=== PATIENT | male | born 1950 | race Caucasian/White ===

== ENCOUNTER 2017-12-31 11:48 | Emergency (ER) | payer MEDICARE ==
[~2017-12-31] VITALS: Ht 167.6 cm; Wt 59.0 kg
[~2017-12-31 11:48] MED LIST: ABILIFY2 MG PO; ATIVAN1 MG PO; CIPRO500 MG PO; CYCLOBENZAPRINE5 M3 PO; FLAGYL500 MG PO; HYDROCODONE BIT1 T11 PO; LIDEX 0.05% CRE15 GM T; NAPROSYN500 MG PO; NORCO 325 MG-51 TAB PO; PAXIL PO; PAXIL30 M1 PO; PERCOCET 325 MG1 TA2 PO; PRILOSEC20 MG PO; PRINIVIL10 MG PO; VICODIN 5/500 505 MG PO
== END 2017-12-31 13:18 | disposition home or self-care (01) ==
LOC: ED 11:48
DX: M72.2 Plantar fascial fibromatosis (principal); M77.32 Calcaneal spur, left foot; Z79.899 Other long term (current) drug therapy

== ENCOUNTER 2018-03-31 12:56 | Emergency (ER) | payer MEDICARE ==
[~2018-03-31] VITALS: Ht 167.6 cm; Wt 53.5 kg
[2018-03-31] MEDS ORDERED: NORCO 5-325 TA1 EACH PO (14:23)
== END 2018-03-31 14:49 | disposition home or self-care (01) ==
LOC: ED 12:56
DX: S82.61XA Displaced fracture of lateral malleolus of right fibula, initial encounter for closed fracture (principal); Z79.899 Other long term (current) drug therapy; W01.0XXA Fall on same level from slipping, tripping and stumbling without subsequent striking against object, initial encounter; Y93.89 Activity, other specified; Y92.89 Other specified places as the place of occurrence of the external cause; Y99.8 Other external cause status

== ENCOUNTER → 2018-05-06 | Outpatient (CLI) | payer MEDICARE ==
[~2018-05-06] MED LIST changes: +NORCO 5-325 TA1 EACH PO
== END | disposition home or self-care (01) ==
LOC: ORTHO 00:33
DX: Z47.89 Encounter for other orthopedic aftercare (principal); S82.64XD Nondisplaced fracture of lateral malleolus of right fibula, subsequent encounter for closed fracture with routine healing; X58.XXXD Exposure to other specified factors, subsequent encounter

== ENCOUNTER → 2019-05-13 | Outpatient (CLI) | payer MEDICARE ==
[~2019-05-13] MED LIST changes: +Carafate1 GM/10 ML PO; +PROTONIX40 MG PO; +VITAMIN D32000 UNI1 PO
--- NOTE | 2019-05-13 10:09 | NUR ---
PATIENT IN FOR A BLOOD DRAW FROM HIS PICC LINE. PATIENT JUST HAD PICC PLACED ON FRIDAY. PATIENT AMBULATED INTO AREA. FLUSHED PATIENT'S PICC LINE AND THEN WAS ABLE TO REMOVE BLOOD. SENT BLOOD TO THE LAB. FLUSHED WITH SALINE AND HEPARIN PER PROTOCOL. PATIENT SCHEDULED FOR NEXT DRESSING CHANGE AND BLOOD DRAW. PATIENT AMBULATED TO THE EXIT. PATIENT D/C.
[2019-05-13 10:14] LABS: BASO # 0.1 10*3/uL (0.0-0.1); BASO % 0.6 % (0.0-1.0); EOS # 0.2 10*3/uL (0.0-0.4); EOS % 2.9 % (1.0-4.0); HEMATOCRIT 32.9 % (42.0-52.0); HEMOGLOBIN 10.9 g/dl (14.0-18.0); LYMPH # 0.9 10*3/uL (1.3-4.4); LYMPH % 11.6 % (27.0-41.0); MEAN CELL VOLUME 92.7 fl (80.0-94.0); MEAN CORPUSCULAR HGB 30.7 pg (27.0-31.0); MEAN CORPUSCULAR HGB CONC 33.1 g/dl (33.0-37.0); MEAN PLATELET VOLUME 8.4 fl (9.6-12.3); MONO # 0.6 10*3/uL (0.1-1.0); MONO % 7.1 % (3.0-9.0); NEUT # 6.2 10*3/uL (2.3-7.9); NEUT % 77.3 % (47.0-73.0); PLATELET COUNT AUTOMATED 418 10*3/uL (130-400); RED BLOOD COUNT 3.55 10*6/uL (4.50-5.90); RED CELL DISTRI WIDTH 12.6 % (0-14.5)
[2019-05-13 10:46] LABS: ALBUMIN 2.6 gm/dl (3.1-4.5); ALKALINE PHOSPHATASE 78 U/L (45-117); BUN 8 mg/dl (7-24); CHLORIDE 108 mmol/L (98-107); CREATININE 0.87 mg/dL (0.70-1.30); POTASSIUM 2.9 mmol/L (3.5-5.1); SGOT/AST 15 IU/L (3-35); SGPT/ALT 17 U/L (12-78); SODIUM 141 mmol/L (136-145); TOTAL PROTEIN 7.3 gm/dL (6.4-8.2)
== END | disposition home or self-care (01) ==
LOC: LAB 09:33
PROVIDERS: Internal Medicine
DX: Z45.2 Encounter for adjustment and management of vascular access device (principal); R78.81 Bacteremia

== ENCOUNTER → 2019-05-20 | Day surgery (SDC) | payer MEDICARE ==
--- NOTE | 2019-05-20 09:48 | NUR ---
0948-BLOOD DRAW FROM PICC LINE PER POLICY AND SPECIMEN TO LAB VIA TUBE TRANSPORT SYSTEM. PICC LINE SITE RIGHT ARM IS ASYMPTOMATIC. DISCHARGED AMBULATORY.
[2019-05-20 10:50] LABS: BASO # 0.1 10*3/uL (0.0-0.1); BASO % 1.1 % (0.0-1.0); EOS # 0.3 10*3/uL (0.0-0.4); EOS % 5.2 % (1.0-4.0); HEMATOCRIT 33.5 % (42.0-52.0); HEMOGLOBIN 10.8 g/dl (14.0-18.0); LYMPH # 1.2 10*3/uL (1.3-4.4); LYMPH % 20.8 % (27.0-41.0); MEAN CELL VOLUME 94.6 fl (80.0-94.0); MEAN CORPUSCULAR HGB 30.5 pg (27.0-31.0); MEAN CORPUSCULAR HGB CONC 32.2 g/dl (33.0-37.0); MONO # 0.8 10*3/uL (0.1-1.0); MONO % 14.6 % (3.0-9.0); NEUT # 3.3 10*3/uL (2.3-7.9); NEUT % 57.9 % (47.0-73.0); PLATELET COUNT AUTOMATED 508 10*3/uL (130-400); RED BLOOD COUNT 3.54 10*6/uL (4.50-5.90); RED CELL DISTRI WIDTH 12.8 % (0-14.5); WHITE BLOOD COUNT 5.6 10*3/uL (4.8-10.8)
[2019-05-20 10:51] LABS: ALBUMIN 2.9 gm/dl (3.1-4.5); BUN 10 mg/dl (7-24); CHLORIDE 104 mmol/L (98-107); CREATININE 0.87 mg/dL (0.70-1.30); POTASSIUM 3.6 mmol/L (3.5-5.1); SGOT/AST 16 IU/L (3-35); SGPT/ALT 13 U/L (12-78); SODIUM 140 mmol/L (136-145)
[2019-05-20 10:52] LABS: ALKALINE PHOSPHATASE 66 U/L (45-117); TOTAL PROTEIN 7.6 gm/dL (6.4-8.2)
== END | disposition home or self-care (01) ==
LOC: SDC 09:24
PROVIDERS: Internal Medicine
DX: Z45.2 Encounter for adjustment and management of vascular access device (principal); R78.81 Bacteremia

== ENCOUNTER → 2019-06-18 | Day surgery (SDC) | payer MEDICARE ==
[~2019-06-18] VITALS: Ht 168.9 cm; Wt 60.3 kg
[~2019-06-18] MED LIST changes: +ABILIFY10 MG PO; +Carafate1 GM PO; +LOSARTAN-HCTZ1 EACH PO; +MAGNESIUM OXID400 MG PO; +MELOXICAM15 MG PO; +POTASSIUM CHLO10 ME5 PO; +ROPINIROLE HYD0.5 MG PO; +SILDENAFIL20 M1 PO
--- NOTE | ~2019-06-18 | O ---
[place], [place] OPERATIVE NOTE NAME: [id number] UNIT #: [id number] ROOM: DOCTOR: MICHAELA LOCKHART,JOSE BIRTHDATE: [birth year] DOS: 06/18/2019 GASTROENDOSCOPIC REPORT INDICATIONS: The patient has presented with multiple medical issues among which has been his previous esophageal ulceration, dysphagia, difficulty with eating, losing weight as a result. PROCEDURE: Today's procedure part of investigation is panendoscopy plus balloon dilation of esophagus. PREMEDICATION: Propofol. SCOPE: Olympus forward-viewing gastroscope Q10 video. REPORT: After putting the patient in left lateral position and application of lubricant to the scope, the scope was introduced. Thereafter, under direct visualization, advanced through the length of esophagus without difficulty. Benign distal esophageal stricture was identified. Large hiatal hernia was seen. Duodenal bulb, second and third part within normal limits. The patient extubated to proximal stomach. A balloon size #15 was introduced into the gastric pouch. Distal esophagus was dilated to size #15, which is allowing the maximum stretch in it. The patient extubated, tolerated the procedure well. IMPRESSION: Distal esophageal benign stricture, status post balloon dilation to size #15, large hiatal hernia, gastritis. PLAN: Continuation with PPI, antireflux measures. Followup with GI clinic. JOSE JENNINGS MD CM:OPRECORD:OPERATIVE NOTE [id number] JOSE JENNINGS MD 06/18/19 1450 interface
[2019-06-18 10:42] VITALS: BP 164/87
[2019-06-18 11:41] VITALS: BP 94/53
[2019-06-18 11:56] VITALS: BP 101/55
[2019-06-18 12:08] VITALS: BP 132/67
== END | disposition home or self-care (01) ==
LOC: SDC 06-15 09:30
DX: K29.50 Unspecified chronic gastritis without bleeding (principal); K44.9 Diaphragmatic hernia without obstruction or gangrene; I10 Essential (primary) hypertension; F41.9 Anxiety disorder, unspecified; F32.9 Major depressive disorder, single episode, unspecified; Z90.49 Acquired absence of other specified parts of digestive tract; Z98.890 Other specified postprocedural states; Z88.8 Allergy status to other drugs, medicaments and biological substances; Z79.899 Other long term (current) drug therapy; Z83.3 Family history of diabetes mellitus; Z82.49 Family history of ischemic heart disease and other diseases of the circulatory system

== ENCOUNTER 2020-07-03 11:44 | Emergency (ER) | payer MEDICARE ==
[~2020-07-03] VITALS: Ht 170.1 cm; Wt 63.5 kg
[2020-07-03] MEDS ORDERED: NORCO 5-325 TA1 EACH PO (14:22)
== END 2020-07-03 14:27 | disposition home or self-care (01) ==
LOC: ED 11:44
DX: S82.831A Other fracture of upper and lower end of right fibula, initial encounter for closed fracture (principal); Z88.8 Allergy status to other drugs, medicaments and biological substances; Z79.899 Other long term (current) drug therapy; Z90.49 Acquired absence of other specified parts of digestive tract; X58.XXXA Exposure to other specified factors, initial encounter; Y93.89 Activity, other specified; Y92.89 Other specified places as the place of occurrence of the external cause; Y99.8 Other external cause status

== ENCOUNTER → 2020-07-12 | Outpatient (CLI) | payer MEDICARE | END | disposition home or self-care (01) | LOC: ORTHO 00:29 | PROVIDERS: ATTEND Orthopaedic Surgery | DX: S82.64XA Nondisplaced fracture of lateral malleolus of right fibula, initial encounter for closed fracture (principal); X58.XXXA Exposure to other specified factors, initial encounter; Y93.89 Activity, other specified; Y92.89 Other specified places as the place of occurrence of the external cause; Y99.8 Other external cause status ==

== ENCOUNTER → 2020-07-26 | Outpatient (CLI) | payer MEDICARE | END | disposition home or self-care (01) | LOC: ORTHO 02:12 | PROVIDERS: ATTEND Orthopaedic Surgery | DX: S82.491D Other fracture of shaft of right fibula, subsequent encounter for closed fracture with routine healing (principal); X58.XXXD Exposure to other specified factors, subsequent encounter ==

== ENCOUNTER 2020-09-17 20:33 | Emergency (ER) | payer MEDICARE ==
[~2020-09-17] VITALS: Ht 162.5 cm; Wt 57.4 kg
== END 2020-09-18 01:00 | disposition home or self-care (01) ==
LOC: ED 20:33
DX: S82.851A Displaced trimalleolar fracture of right lower leg, initial encounter for closed fracture (principal); Z88.8 Allergy status to other drugs, medicaments and biological substances; Z79.899 Other long term (current) drug therapy; X58.XXXA Exposure to other specified factors, initial encounter; Y93.89 Activity, other specified; Y92.89 Other specified places as the place of occurrence of the external cause; Y99.8 Other external cause status

== ENCOUNTER 2020-10-01 01:21 | Inpatient (IN) | payer MEDICARE ==
[~2020-10-01] VITALS: Ht 167.6 cm; Wt 56.7 kg
[2020-10-01 01:23] VITALS: BP 152/96
[2020-10-01 01:53] LABS: HEMATOCRIT 38.7 % (42.0-52.0); MEAN CELL VOLUME 77.4 fl (80.0-94.0); MEAN CORPUSCULAR HGB 24.2 pg (27.0-31.0); MEAN CORPUSCULAR HGB CONC 31.3 g/dl (33.0-37.0); MEAN PLATELET VOLUME 8.1 fl (9.6-12.3); PLATELET COUNT AUTOMATED 371 10*3/uL (130-400); RED CELL DISTRI WIDTH 14.3 % (0-14.5); WHITE BLOOD COUNT 11.5 10*3/uL (4.8-10.8)
[2020-10-01 02:09] LABS: ALBUMIN 3.4 gm/dl (3.1-4.5); ALKALINE PHOSPHATASE 228 U/L (45-117); BUN 18 mg/dl (7-24); CHLORIDE 98 mmol/L (98-107); CREATININE 1.16 mg/dL (0.70-1.30); LIPASE 249 U/L (73-393); POTASSIUM 3.1 mmol/L (3.5-5.1); SGOT/AST 223 IU/L (3-35); SGPT/ALT 140 U/L (12-78); SODIUM 135 mmol/L (136-145)
[2020-10-01 02:13] LABS: PLATELET SUFFICIENCY NORMAL (NORMAL); TOTAL CELLS COUNTED 100 #CELLS
[2020-10-01 06:24] VITALS: BP 147/80
[2020-10-01 06:26] LABS: HEMATOCRIT 35.3 % (42.0-52.0); MEAN CELL VOLUME 76.1 fl (80.0-94.0); MEAN CORPUSCULAR HGB 24.4 pg (27.0-31.0); MEAN PLATELET VOLUME 8.1 fl (9.6-12.3); PLATELET COUNT AUTOMATED 310 10*3/uL (130-400); RED BLOOD COUNT 4.64 10*6/uL (4.50-5.90); RED CELL DISTRI WIDTH 14.5 % (0-14.5); WHITE BLOOD COUNT 11.2 10*3/uL (4.8-10.8)
[2020-10-01 06:54] LABS: BUN 20 mg/dl (7-24); CHLORIDE 100 mmol/L (98-107); POTASSIUM 3.8 mmol/L (3.5-5.1); SGOT/AST 324 IU/L (3-35); SGPT/ALT 211 U/L (12-78); SODIUM 135 mmol/L (136-145)
[2020-10-01 06:56] LABS: ALKALINE PHOSPHATASE 214 U/L (45-117); TOTAL PROTEIN 7.1 gm/dL (6.4-8.2)
[2020-10-01 07:06] LABS: BURR CELLS FEW; MICROCYTOSIS SLIGHT; OVALOCYTES FEW; PLATELET SUFFICIENCY NORMAL (NORMAL); TOTAL CELLS COUNTED 100 #CELLS
[2020-10-01 08:56] VITALS: BP 93/58
[2020-10-01 12:19] LABS: BUN 20 mg/dl (7-24); CHLORIDE 102 mmol/L (98-107); CREATININE 1.12 mg/dL (0.70-1.30); POTASSIUM 4.3 mmol/L (3.5-5.1); SODIUM 136 mmol/L (136-145)
== END 2020-10-01 13:59 | disposition home or self-care (01) | DRG 445 ==
LOC: ED 01:21 → EDHOLD 05:24
PROVIDERS: Hospitalist; Internal Medicine; ADMIT Internal Medicine; ATTEND Internal Medicine
DX: K83.8 Other specified diseases of biliary tract (principal); E87.1 Hypo-osmolality and hyponatremia; R74.01 Elevation of levels of liver transaminase levels; E80.6 Other disorders of bilirubin metabolism; R73.9 Hyperglycemia, unspecified; E87.6 Hypokalemia; D72.829 Elevated white blood cell count, unspecified; D50.9 Iron deficiency anemia, unspecified; I10 Essential (primary) hypertension; F32.9 Major depressive disorder, single episode, unspecified; E83.42 Hypomagnesemia; Z88.8 Allergy status to other drugs, medicaments and biological substances; Z90.49 Acquired absence of other specified parts of digestive tract; Z82.49 Family history of ischemic heart disease and other diseases of the circulatory system; Z79.1 Long term (current) use of non-steroidal anti-inflammatories (NSAID); Z79.899 Other long term (current) drug therapy

== ENCOUNTER → 2021-02-02 | Outpatient (CLI) | payer MEDICARE ==
[2021-02-02 12:32] LABS: HEMATOCRIT 43.1 % (42.0-52.0); MEAN CORPUSCULAR HGB 28.1 pg (27.0-31.0); MEAN CORPUSCULAR HGB CONC 33.9 g/dl (33.0-37.0); MEAN PLATELET VOLUME 8.2 fl (9.6-12.3); RED BLOOD COUNT 5.19 10*6/uL (4.50-5.90); RED CELL DISTRI WIDTH 17.3 % (0-14.5)
[2021-02-02 12:59] LABS: ALBUMIN 4.2 gm/dl (3.1-4.5); ALKALINE PHOSPHATASE 67 U/L (45-117); BUN 12 mg/dl (7-24); CHLORIDE 85 mmol/L (98-107); CHOLESTEROL 165 mg/dL (<200); CREATININE 1.07 mg/dL (0.70-1.30); LDL CHOLESTEROL 69 mg/dL (9-159); POTASSIUM 3.7 mmol/L (3.5-5.1); SGOT/AST 30 IU/L (3-35); SGPT/ALT 32 U/L (12-78); SODIUM 125 mmol/L (136-145); TOTAL PROTEIN 8.5 gm/dL (6.4-8.2); TRIGLYCERIDES 82 mg/dl (<150)
== END | disposition home or self-care (01) ==
LOC: LAB 11:44
PROVIDERS: ATTEND Internal Medicine
DX: I95.1 Orthostatic hypotension (principal); I10 Essential (primary) hypertension; R73.9 Hyperglycemia, unspecified

== ENCOUNTER → 2021-06-10 | Outpatient (CLI) | payer MEDICARE | END | disposition home or self-care (01) | LOC: RAD 10:00 | PROVIDERS: ATTEND Internal Medicine | DX: M54.40 Lumbago with sciatica, unspecified side (principal) ==

== ENCOUNTER → 2022-02-27 | Outpatient (CLI) | payer MEDICARE | END | disposition home or self-care (01) | LOC: RAD 09:30 | PROVIDERS: ATTEND Internal Medicine | DX: M17.11 Unilateral primary osteoarthritis, right knee (principal) ==

== ENCOUNTER 2022-08-30 13:21 | Emergency (ER) | payer MEDICARE ==
[~2022-08-30] VITALS: Ht 167.6 cm; Wt 61.2 kg
[2022-08-30 14:24] LABS: BASO % 0.6 % (0.0-1.0); EOS # 0.1 10*3/uL (0.0-0.4); EOS % 1.2 % (1.0-4.0); LYMPH % 14.8 % (27.0-41.0); MEAN CELL VOLUME 94.7 fl (80.0-94.0); MEAN CORPUSCULAR HGB 32.4 pg (27.0-31.0); MEAN CORPUSCULAR HGB CONC 34.2 g/dl (33.0-37.0); MEAN PLATELET VOLUME 7.8 fl (9.6-12.3); MONO # 0.6 10*3/uL (0.1-1.0); MONO % 9.3 % (3.0-9.0); NEUT # 4.9 10*3/uL (2.3-7.9); NEUT % 73.8 % (47.0-73.0); PLATELET COUNT AUTOMATED 376 10*3/uL (130-400); RED CELL DISTRI WIDTH 12.3 % (0-14.5); WHITE BLOOD COUNT 6.7 10*3/uL (4.8-10.8)
[2022-08-30 14:42] LABS: CREATININE 1.49 mg/dL (0.70-1.30); POTASSIUM 4.4 mmol/L (3.4-5.1); TOTAL PROTEIN 7.3 gm/dL (6.0-8.0)
== END 2022-08-30 17:36 | disposition home or self-care (01) ==
LOC: ED 13:21
PROVIDERS: Emergency Medicine; Nurse Practitioner Family
DX: S30.1XXA Contusion of abdominal wall, initial encounter (principal); E87.1 Hypo-osmolality and hyponatremia; Z88.8 Allergy status to other drugs, medicaments and biological substances; Z79.899 Other long term (current) drug therapy; Z90.49 Acquired absence of other specified parts of digestive tract; Z98.890 Other specified postprocedural states; X58.XXXA Exposure to other specified factors, initial encounter; Y93.89 Activity, other specified; Y92.89 Other specified places as the place of occurrence of the external cause; Y99.8 Other external cause status

== ENCOUNTER 2022-12-24 12:07 | Emergency (ER) | payer MEDICARE ==
[~2022-12-24] VITALS: Ht 167.6 cm; Wt 59.0 kg
[2022-12-24] MEDS ORDERED: MEDROL DOSEPAK4 MG PO (15:34)
== END 2022-12-24 16:30 | disposition home or self-care (01) ==
LOC: ED 12:07
DX: M25.461 Effusion, right knee (principal); M19.90 Unspecified osteoarthritis, unspecified site; M81.0 Age-related osteoporosis without current pathological fracture; I10 Essential (primary) hypertension; F41.9 Anxiety disorder, unspecified; F32.A Depression, unspecified; Z88.8 Allergy status to other drugs, medicaments and biological substances; Z90.49 Acquired absence of other specified parts of digestive tract; Z98.890 Other specified postprocedural states; F14.90 Cocaine use, unspecified, uncomplicated

== ENCOUNTER → 2023-05-19 | Outpatient (CLI) | payer MEDICARE ==
[~2023-05-19] MED LIST changes: +MEDROL DOSEPAK4 MG PO
[2023-05-19 11:38] LABS: BASO # 0.1 10*3/uL (0.0-0.1); BASO % 0.8 % (0.0-1.0); EOS # 0.1 10*3/uL (0.0-0.4); EOS % 1.5 % (1.0-4.0); HEMATOCRIT 40.9 % (42.0-52.0); LYMPH % 14.5 % (27.0-41.0); MEAN CELL VOLUME 96.2 fl (80.0-94.0); MEAN CORPUSCULAR HGB CONC 33.3 g/dl (33.0-37.0); MEAN PLATELET VOLUME 7.8 fl (9.6-12.3); MONO # 0.6 10*3/uL (0.1-1.0); MONO % 8.5 % (3.0-9.0); NEUT # 4.9 10*3/uL (2.3-7.9); NEUT % 74.4 % (47.0-73.0); PLATELET COUNT AUTOMATED 295 10*3/uL (130-400); RED BLOOD COUNT 4.25 10*6/uL (4.50-5.90); RED CELL DISTRI WIDTH 12.3 % (0-14.5); WHITE BLOOD COUNT 6.6 10*3/uL (4.8-10.8)
[2023-05-19 14:20] LABS: BF LYMPHOCYTES 8 %; BF MACROPHAGES 34 %; BF NEUTROPHILS 58 %
[2023-05-20 15:07] LABS: ACID FAST SPEC PROCESSING Direct Inoculation (.)
== END | disposition home or self-care (01) ==
LOC: LAB 11:16
PROVIDERS: ATTEND Orthopaedic Surgery
DX: M25.461 Effusion, right knee (principal); R07.9 Chest pain, unspecified

== ENCOUNTER 2023-07-05 08:25 | Emergency (ER) | payer MEDICARE ==
[~2023-07-05] VITALS: Ht 167.6 cm; Wt 72.6 kg
[2023-07-05 09:11] LABS: BASO % 0.6 % (0.0-1.0); EOS # 0.1 10*3/uL (0.0-0.4); EOS % 2.5 % (1.0-4.0); HEMATOCRIT 34.5 % (42.0-52.0); LYMPH # 0.5 10*3/uL (1.3-4.4); LYMPH % 9.7 % (27.0-41.0); MEAN CELL VOLUME 92.5 fl (80.0-94.0); MEAN CORPUSCULAR HGB CONC 35.7 g/dl (33.0-37.0); MONO # 0.7 10*3/uL (0.1-1.0); MONO % 14.2 % (3.0-9.0); NEUT # 3.5 10*3/uL (2.3-7.9); NEUT % 72.4 % (47.0-73.0); PLATELET COUNT AUTOMATED 286 10*3/uL (130-400); RED BLOOD COUNT 3.73 10*6/uL (4.50-5.90); RED CELL DISTRI WIDTH 12.6 % (0-14.5); WHITE BLOOD COUNT 4.9 10*3/uL (4.8-10.8)
[2023-07-05] MEDS ORDERED: NAPROXEN500 MG PO (09:32)
[2023-07-05] MEDS ORDERED: ACETAMINOPHEN650 M5 PO (09:32)
[2023-07-05] MEDS ORDERED: FEROSUL325 M1 PO (09:32)
[2023-07-05] MEDS ORDERED: AMITRIPTYLINE100 M1 PO (09:33)
[2023-07-05] MEDS ORDERED: BUPROPION HYDR150 M3 PO (09:33)
[2023-07-05] MEDS ORDERED: VITAMIN D350 MC2 PO (09:34)
[2023-07-05] MEDS ORDERED: SODIUM CHLORI1000 M5 MC (09:34)
[2023-07-05 09:50] LABS: ALKALINE PHOSPHATASE 110 U/L (46-116); BUN 8 mg/dl (9-23); CHLORIDE 98 mmol/L (98-107); LIPASE 26 U/L (12-53); POTASSIUM 4.3 mmol/L (3.4-5.1); SGPT/ALT 37 U/L (10-49); TOTAL PROTEIN 6.6 gm/dL (6.0-8.0)
[2023-07-05 09:51] LABS: ETHYL ALCOHOL < 3.0 mg/dl (<3)
[2023-07-05 10:33] LABS: BILIRUBIN Negative (Negative); BLOOD Negative (Negative); CLARITY Clear (Clear); COLOR Yellow (Yellow); GLUCOSE Negative (Negative); KETONE Negative (Negative); LEUKO ESTERASE Negative (Negative); NITRITE Negative (Negative); SPECIFIC GRAVITY <= 1.005 (1.001-1.030); UROBILINOGEN 0.2 E.U./dl (0.0-1.0)
[2023-07-05 11:10] LABS: BACTERIA TRACE; EPITHELIAL CELLS 0-2; WBC 0-2 wbc/hpf (0-5)
== END 2023-07-05 11:36 | disposition home or self-care (01) ==
LOC: ED 08:25
PROVIDERS: Emergency Medicine
DX: R53.1 Weakness (principal); R42 Dizziness and giddiness; I10 Essential (primary) hypertension; F41.9 Anxiety disorder, unspecified; F32.A Depression, unspecified; Z88.8 Allergy status to other drugs, medicaments and biological substances; Z90.49 Acquired absence of other specified parts of digestive tract; Z98.890 Other specified postprocedural states; F14.90 Cocaine use, unspecified, uncomplicated; Z79.899 Other long term (current) drug therapy; Z20.822 Contact with and (suspected) exposure to COVID-19

== ENCOUNTER 2023-10-04 19:43 | Inpatient (IN) | payer MEDICARE ==
[~2023-10-04] VITALS: Ht 162.5 cm; Wt 48.5 kg
[~2023-10-04 19:43] MED LIST changes: +ACETAMINOPHEN650 M5 PO; +AMITRIPTYLINE100 M1 PO; +ASPIRIN CHILDRE81 MG PO; +ATORVASTATIN CA40 M1 PO; +BUPROPION HYDR150 M3 PEG; +CLOPIDOGREL75 MG PO; +COZAAR50 M1 PO; +FEROSUL325 M1 PEG; +LEXAPRO20 MG PO; +MAGNESIUM400 M1 PEG; +NAPROXEN500 MG PO; +PANTOPRAZOLE SO40 MG PO; +PROTONIX20 MG PO; +ROPINIROLE HYD0.5 MG PEG; -ROPINIROLE HYD0.5 MG PO; +SODIUM CHLORI1000 M5 PEG; +TRAZODONE50 MG PO; +VITAMIN D350 MC2 PEG
[2023-10-04 20:01] VITALS: BP 122/77
[2023-10-04 20:17] LABS: HEMATOCRIT 36.1 % (42.0-52.0); MEAN CELL VOLUME 97.3 fl (80.0-94.0); MEAN CORPUSCULAR HGB 30.5 pg (27.0-31.0); MEAN CORPUSCULAR HGB CONC 31.3 g/dl (33.0-37.0); MEAN PLATELET VOLUME 9.7 fl (9.6-12.3); PLATELET COUNT AUTOMATED 566 10*3/uL (130-400); RED BLOOD COUNT 3.71 10*6/uL (4.50-5.90); RED CELL DISTRI WIDTH 12.5 % (0-14.5); WHITE BLOOD COUNT 20.6 10*3/uL (4.8-10.8)
[2023-10-04 20:20] LABS: MANUAL DIFF REFLEX YES
[2023-10-04 20:30] LABS: ACT PARTIAL THROMBO TIME 25.6 SECONDS (20.0-32.1)
[2023-10-04 20:41] LABS: ALKALINE PHOSPHATASE 61 U/L (46-116); BUN 15 mg/dl (9-23); CHLORIDE 108 mmol/L (98-107); LIPASE 60 U/L (12-53); SGPT/ALT 12 U/L (5-49); TOTAL PROTEIN 6.8 gm/dL (6.0-8.0)
[2023-10-04 20:50] LABS: TOTAL CELLS COUNTED 100 #CELLS
[2023-10-04 20:51] LABS: BURR CELLS FEW; PLATELET SUFFICIENCY HIGH (NORMAL); POLYCHROMASIA SLIGHT
[2023-10-04 22:50] VITALS: BP 120/86
[2023-10-05 01:04] VITALS: BP 150/82
[2023-10-05 03:00] VITALS: BP 117/68
[2023-10-05] MEDS ORDERED: ACETAMINOPHEN325 M2 PEG (03:23)
[2023-10-05] MEDS ORDERED: CLOPIDOGREL75 MG PEG (03:28)
[2023-10-05] MEDS ORDERED: MILK OF MA400 MG/51 PEG (03:31)
[2023-10-05] MEDS ORDERED: LIPITOR40 MG PEG (03:32)
[2023-10-05] MEDS ORDERED: PROTONIX40 M2 PEG (03:33)
[2023-10-05] MEDS ORDERED: ASPIRIN CHEWABL81 MG PEG (03:35)
[2023-10-05 08:00] VITALS: BP 135/65
[2023-10-05 08:19] LABS: BASO # 0.1 10*3/uL (0.0-0.1); BASO % 0.3 % (0.0-1.0); HEMATOCRIT 28.8 % (42.0-52.0); LYMPH # 1.1 10*3/uL (1.3-4.4); LYMPH % 6.5 % (27.0-41.0); MEAN CELL VOLUME 97.6 fl (80.0-94.0); MEAN CORPUSCULAR HGB 30.8 pg (27.0-31.0); MEAN CORPUSCULAR HGB CONC 31.6 g/dl (33.0-37.0); MEAN PLATELET VOLUME 9.8 fl (9.6-12.3); MONO # 1.4 10*3/uL (0.1-1.0); MONO % 8.5 % (3.0-9.0); NEUT # 14.1 10*3/uL (2.3-7.9); NEUT % 84.2 % (47.0-73.0); PLATELET COUNT AUTOMATED 472 10*3/uL (130-400); RED BLOOD COUNT 2.95 10*6/uL (4.50-5.90); RED CELL DISTRI WIDTH 12.5 % (0-14.5); WHITE BLOOD COUNT 16.7 10*3/uL (4.8-10.8)
[2023-10-05 08:41] LABS: FREE T4 0.73 ng/dl (0.89-1.76)
[2023-10-05 12:00] VITALS: BP 132/73
[2023-10-05 16:00] VITALS: BP 148/72
[2023-10-05 20:00] VITALS: BP 150/84
[2023-10-06] VITALS: BP 136/76
[2023-10-06 06:42] LABS: BASO % 0.2 % (0.0-1.0); EOS % 0.2 % (1.0-4.0); HEMATOCRIT 26.5 % (42.0-52.0); LYMPH # 1.1 10*3/uL (1.3-4.4); LYMPH % 8.2 % (27.0-41.0); MEAN CELL VOLUME 96.4 fl (80.0-94.0); MEAN CORPUSCULAR HGB 30.9 pg (27.0-31.0); MEAN CORPUSCULAR HGB CONC 32.1 g/dl (33.0-37.0); MEAN PLATELET VOLUME 9.9 fl (9.6-12.3); MONO % 7.3 % (3.0-9.0); NEUT # 11.1 10*3/uL (2.3-7.9); NEUT % 83.7 % (47.0-73.0); PLATELET COUNT AUTOMATED 473 10*3/uL (130-400); RED BLOOD COUNT 2.75 10*6/uL (4.50-5.90); RED CELL DISTRI WIDTH 12.7 % (0-14.5); WHITE BLOOD COUNT 13.2 10*3/uL (4.8-10.8)
[2023-10-06 08:00] VITALS: BP 145/86
[2023-10-06 08:05] LABS: ALKALINE PHOSPHATASE 62 U/L (46-116); BUN 16 mg/dl (9-23); CHLORIDE 117 mmol/L (98-107); POTASSIUM 2.6 mmol/L (3.4-5.1); SGPT/ALT 15 U/L (5-49)
[2023-10-06 12:00] VITALS: BP 154/83
[2023-10-06 16:00] VITALS: BP 145/83
[2023-10-06 20:00] VITALS: BP 141/71
[2023-10-07] VITALS: BP 143/76
[2023-10-07 05:25] LABS: BUN 15 mg/dl (9-23); CHLORIDE 118 mmol/L (98-107); POTASSIUM 2.8 mmol/L (3.4-5.1)
[2023-10-07 06:29] LABS: BASO % 0.2 % (0.0-1.0); EOS % 0.2 % (1.0-4.0); HEMATOCRIT 26.6 % (42.0-52.0); LYMPH # 1.2 10*3/uL (1.3-4.4); LYMPH % 9.3 % (27.0-41.0); MEAN CELL VOLUME 97.1 fl (80.0-94.0); MEAN CORPUSCULAR HGB 30.7 pg (27.0-31.0); MEAN CORPUSCULAR HGB CONC 31.6 g/dl (33.0-37.0); MEAN PLATELET VOLUME 9.7 fl (9.6-12.3); MONO # 0.9 10*3/uL (0.1-1.0); NEUT # 10.2 10*3/uL (2.3-7.9); NEUT % 82.7 % (47.0-73.0); PLATELET COUNT AUTOMATED 530 10*3/uL (130-400); RED BLOOD COUNT 2.74 10*6/uL (4.50-5.90); RED CELL DISTRI WIDTH 12.8 % (0-14.5); WHITE BLOOD COUNT 12.3 10*3/uL (4.8-10.8)
[2023-10-07 08:00] VITALS: BP 130/70
[2023-10-07 12:00] VITALS: BP 144/60
[2023-10-07 16:00] VITALS: BP 141/75
[2023-10-07 20:00] VITALS: BP 141/73
[2023-10-08] VITALS: BP 124/63
[2023-10-08 05:36] LABS: BUN 14 mg/dl (9-23); CHLORIDE 115 mmol/L (98-107); POTASSIUM 2.7 mmol/L (3.4-5.1)
[2023-10-08 06:12] LABS: BASO % 0.4 % (0.0-1.0); EOS # 0.1 10*3/uL (0.0-0.4); EOS % 0.9 % (1.0-4.0); HEMATOCRIT 26.6 % (42.0-52.0); LYMPH # 1.4 10*3/uL (1.3-4.4); LYMPH % 12.2 % (27.0-41.0); MEAN CELL VOLUME 99.3 fl (80.0-94.0); MEAN CORPUSCULAR HGB 30.2 pg (27.0-31.0); MEAN CORPUSCULAR HGB CONC 30.5 g/dl (33.0-37.0); MEAN PLATELET VOLUME 9.7 fl (9.6-12.3); MONO # 0.8 10*3/uL (0.1-1.0); MONO % 7.1 % (3.0-9.0); PLATELET COUNT AUTOMATED 491 10*3/uL (130-400); RED BLOOD COUNT 2.68 10*6/uL (4.50-5.90); RED CELL DISTRI WIDTH 13.1 % (0-14.5); WHITE BLOOD COUNT 11.3 10*3/uL (4.8-10.8)
[2023-10-08 08:00] VITALS: BP 139/71
[2023-10-08 12:00] VITALS: BP 129/81
[2023-10-08 15:22] LABS: BUN 12 mg/dl (9-23); CHLORIDE 114 mmol/L (98-107)
[2023-10-08] MEDS ORDERED: FEROSUL325 M1 PEG (15:41)
[2023-10-08] MEDS ORDERED: K-TAB20 MEQ PEG (15:41)
[2023-10-08 16:00] VITALS: BP 151/88
[2023-10-10] MEDS ORDERED: AFLURIA QU IM (21:35)
[2023-10-10] MEDS ORDERED: BISACODYL10 MG R (21:36)
[2023-10-10] MEDS ORDERED: FLEET ENEMA 13133 ML R (21:37)
[2023-10-10] MEDS ORDERED: PNEUMOCOCCAL 13 VALENT CONJUGATE VACCINE IM (21:38)
== END 2023-10-08 20:00 | DRG 862 ==
LOC: ED 19:43 → EDHOLD 22:16 → 5E 22:16
PROVIDERS: Family Medicine; Internal Medicine; Student in an Organized Health Care Education/Training Program; ADMIT Internal Medicine; ATTEND Internal Medicine
DX: T81.43XA Infection following a procedure, organ and space surgical site, initial encounter (principal); A41.9 Sepsis, unspecified organism; E43 Unspecified severe protein-calorie malnutrition; Q79.0 Congenital diaphragmatic hernia; F31.5 Bipolar disorder, current episode depressed, severe, with psychotic features; E87.0 Hyperosmolality and hypernatremia; Z68.1 Body mass index [BMI] 19.9 or less, adult; K94.21 Gastrostomy hemorrhage; L76.82 Other postprocedural complications of skin and subcutaneous tissue; R62.7 Adult failure to thrive; D75.839 Thrombocytosis, unspecified; S30.1XXA Contusion of abdominal wall, initial encounter; S39.011A Strain of muscle, fascia and tendon of abdomen, initial encounter; K59.00 Constipation, unspecified; N32.89 Other specified disorders of bladder; N30.90 Cystitis, unspecified without hematuria; D53.9 Nutritional anemia, unspecified; E87.8 Other disorders of electrolyte and fluid balance, not elsewhere classified; I10 Essential (primary) hypertension; K22.0 Achalasia of cardia; E78.5 Hyperlipidemia, unspecified; E87.6 Hypokalemia; E55.9 Vitamin D deficiency, unspecified; E61.1 Iron deficiency; K21.9 Gastro-esophageal reflux disease without esophagitis; G25.81 Restless legs syndrome; Y83.8 Other surgical procedures as the cause of abnormal reaction of the patient, or of later complication, without mention of misadventure at the time of the procedure; F41.1 Generalized anxiety disorder; Z86.14 Personal history of Methicillin resistant Staphylococcus aureus infection; Z72.89 Other problems related to lifestyle; Z88.8 Allergy status to other drugs, medicaments and biological substances; Z79.82 Long term (current) use of aspirin; Z79.899 Other long term (current) drug therapy; Z90.49 Acquired absence of other specified parts of digestive tract; Z79.1 Long term (current) use of non-steroidal anti-inflammatories (NSAID); Y92.89 Other specified places as the place of occurrence of the external cause; Z82.49 Family history of ischemic heart disease and other diseases of the circulatory system